=== PATIENT | female | born 1975 | race Caucasian/White ===

== ENCOUNTER 2022-12-14 07:23 | Emergency (ER) | payer MEDICARE, MEDICAID, SELFPAY ==
[2022-12-14 07:29] VITALS: BP 130/88; PULSE 96; RESP 20; TEMP 36.2; O2SAT 96; BMI 31.2
--- NOTE | 2022-12-14 08:17 | ED.PSYCH ---
HPI - Psych General Date Seen: 12/14/22 Chief Complaint: Psychiatric Problem/Disorder Stated Complaint: Mental Health Time Seen by Provider: 12/14/22 07:54 Source: patient Mode of arrival: EMS Limitations: no limitations History of Present Illness HPI Narrative: Is a 47-year-old female who presents here by EMS from [facility] for suicidal ideation, she was recently 3 days ago from [facility] in [place], she was hospitalized there for similar issues, she has a long psychiatric history of hospitalizations greater than 10 she tells me, is looking for a long-term solution for her issues. She has a history of previous substance abuse has been cleaned for 8 years, history of multiple personality disorder, anxiety, depression, and multiple other cluster B traits. She has a plan to stab herself in the head with scissors. Or take an overdose of her medication. Lives by herself, on disability. Tells me that she will go to [facility] because there was a doctor there that told her she should not be rude. She said it is required by healthcare professionals to accept what patient's half to say. I would expect her not to be route to my staff or myself, she promptly told me that she did not want me to be her doctor. I explained to her that I am not siding with anyone I am just sane that we do not accept the fact that patients are rude to healthcare professionals. She said then she would not talk to me anymore, but would allow blood test, and talked to the mental health professional. Related Data Home Medications Medication Instructions Recorded Confirmed atorvastatin 20 mg tablet 20 mg PO .PM, Once Daily 12/14/22 12/14/22 bupropion HCl 150 mg 24 hr tablet, 150 mg PO .AM, Once Daily 12/14/22 12/14/22 extended release cholecalciferol (vitamin D3) 25 50 mcg PO DAILY 12/14/22 12/14/22 mcg (1,000 unit) capsule (Vitamin D3) cholecalciferol (vitamin D3) 50 50 mcg PO .AM, Once Daily 12/14/22 12/14/22 mcg (2,000 unit) capsule glipizide 5 mg tablet 5 mg PO .AM, Once Daily 12/14/22 12/14/22 omeprazole 20 mg capsule,delayed 20 mg PO .AM, Once Daily 12/14/22 12/14/22 release prazosin 1 mg capsule 1 mg PO .AM & PM, Daily 12/14/22 12/14/22 venlafaxine 37.5 mg 37.5 mg PO .AM, Once Daily 12/14/22 12/14/22 capsule,extended release 24 hr (Effexor XR) Allergies Allergy/AdvReac Type Severity Reaction Status Date / Time Iodinated Contrast Media Allergy Verified 12/14/22 07:39 Sulfa (Sulfonamide Allergy Verified 12/14/22 07:39 Antibiotics) bioxin Allergy Uncoded 12/14/22 07:38 Review of Systems Status of ROS: Reports: unobtainable due to mental status Narrative: Patient will not give me any information. PFSH ON LICENSE OF [facility] Social History Smoking Status: Former smoker Do you use any of these nicotine containing products: None Second hand tobacco smoke exposure: No How often do you have a drink containing alcohol: never AUDIT-C Alcohol total score: 0 Non-prescribed substance use: former substance user and opiods/painkillers Non-prescribed substance use details: former opiods and benzos Exam Narrative: Exam Narrative: On examination in room 3 with nurse Nalini present is able to stand and walk around the room normally, mouth opening normal, cranial nerves 3-12 are normal, she has normal her ocular muscles that move normally, TMs are normal, neck is supple, there is no evidence of meningismus, chest is clear bilaterally with no wheezing crackles noted, heart sounds are normal her abdomen is soft and obese, she moves all extremities independently and well, no evidence of any significant cutting behavior, scarring, track lines on the arms or legs. Neurologically she moves her upper lower extremities normally with normal power, she has no evidence of any tremors. Const: Vital Signs, click to edit/add: Vital Signs - 24 hr 12/14/22 07:29 Temperature 97.2 F L Pulse Rate [Pulse Oximeter] 96 Respiratory Rate 20 Blood Pressure [Ri ght Upper Arm] 130/88 Pulse Oximetry 96 Oxygen Delivery Me thod Room Air Documenting provider has reviewed patient's vital signs: yes Common normals: no apparent distress and oriented x3 Neuro: Common normals: oriented x3 Course Reevaluation(s) Reevaluation #1: Patient call me back in the room, she want to apologize for our interaction, accepted, she says she does not agree with me that as the patient can not be ruled with healthcare providers, but I accepted her apology. We will go forward with her deck assessment, she was asking for Zyprexa along with some hydroxyzine both of these are okay to give. She wanted a bigger dose of her Prazosin that she takes for her PTSD, explained to her that this is in the realm Psychiatry, and they handle this. Time: 12:12 Reevaluation #2: Went over with patient the safety plan, it seems like this is the will work well for her. Offered our services in the future if she has any further issues. She was very accepting of this. Apologetic. Time: 14:18 Vital Signs Vital signs: Initial Vital Signs Temperature 97.2 F L 12/14/22 07:29 Temperature Source Temporal Artery Scan 12/14/22 07:29 Pulse Rate 96 12/14/22 07:29 Pulse Rhythm 12/14/22 07:29 Respiratory Rate 20 12/14/22 07:29 Blood Pressure 130/88 12/14/22 07:29 Blood Pressure Mean 102 12/14/22 07:29 Blood Pressure Position Sitting 12/14/22 07:29 Pulse Oximetry 96 12/14/22 07:29 Oxygen Delivery Method 12/14/22 07:29 Vital Signs Temperature 97.2 F L 12/14/22 07:29 Pulse Rate 96 12/14/22 07:29 Respiratory Rate 20 12/14/22 07:29 Blood Pressure 130/88 12/14/22 07:29 Pulse Oximetry 96 12/14/22 07:29 Oxygen Delivery Method 12/14/22 07:29 Temperature 97.2 F L 12/14/22 07:29 Pulse Rate 96 12/14/22 07:29 Respiratory Rate 20 12/14/22 07:29 Blood Pressure 130/88 12/14/22 07:29 Pulse Oximetry 96 12/14/22 07:29 Oxygen Delivery Method 12/14/22 07:29 MDM - Psych MDM Narrative Medical decision making narrative: Differential diagnosis includes but is not limited life-threatening diagnosis is of severe depression with suicidal plan, chemical intoxication with suicidal ideation and risk of self-harm, schizoaffective disorder with risk of self-harm, bipolar disorder with severe depressive phase and risk of self-harm, personality disorder with risk of self-harm, depression due to hyperthyroidism, metabolic derangement, or [employer] abnormality Lab Data Labs: Lab Results 12/14/22 12/14/22 12/14/22 Range/Units 08:20 08:23 08:32 WBC 6.39 (4.50-11.00) K/uL RBC 4.59 (4.00-5.20) m/uL Hgb 12.9 (12.0-16.0) gm/dL Hct 38.5 (33.0-51.0) % MCV 84 (80-100) fL MCH 28 (26-34) pg MCHC 34 (32-36) gm/dL RDW Coeff of Haider 13.8 (11.5-15.5) % Plt Count 304 (140-440) K/uL Neut % (Auto) 52.9 (42.0-72.0) % Lymph % (Auto) 30.2 (20-44) % [place] % (Auto) 11.1 H (0.0-11.0) % Eos % (Auto) 5.0 (0.0-7.0) % Baso % (Auto) 0.8 (0.0-3.0) % Neut # (Auto) 3.38 (1.7-7.0) K/uL Lymph # (Auto) 1.93 (0.90-2.90) K/uL [place] # (Auto) 0.70 (0.00-0.90) K/UL Eos # (Auto) 0.32 (0.00-0.50) K/uL Baso # (Auto) 0.05 (0.00-0.30) K/uL Sodium (135-149) mmol/L Potassium (3.6-5.1) mmol/L Chloride (96-114) mmol/L Carbon Dioxide (20-32) mmol/L BUN (5-24) mg/dL Creatinine (0.5-1.5) mg/dL Estimated Creat Clear Estimated GFR ml/min Glucose (60-115) mg/dL Calcium (8.4-10.6) mg/dL Total Bilirubin (0.1-1.5) mg/dL Direct Bilirubin (0.0-0.5) mg/dL AST (12-35) U/L ALT (4-35) U/L Alkaline Phosphatase (40-150) U/L Total Protein (6.0-8.3) g/dL Albumin (3.3-5.0) g/dL TSH 0.452 (0.270-4.20) uIU/mL HCG, Qual (Negative) Salicylates (1.0-10) mg/dL Urine Opiates Screen (Negative) Ur Oxycodone Screen (Negative) Urine Methadone Screen (Negative) Ur Propoxyphene Screen (Negative) Acetaminophen (10.0-30.0) ug/mL Ur Barbiturates Screen (Negative) U Tricyclic Antidepress (Negative) Ur Phencyclidine Scrn (Negative) Ur Amphetamines Screen (Negative) U Methamphetamines Scrn (Negative) U Benzodiazepines Scrn (Negative) Urine Cocaine Screen (Negative) U Marijuana (THC) Screen (Negative) Ur Drug Screen Comment Ethyl Alcohol (0.01-0.03) % SARS-CoV-2 (PCR) Negative SARS-CoV-2 (Negative) Influenza Type A (PCR) Negative PCR FLU A (Negative) Influenza Type B (PCR) Negative PCR FLU B (Negative) RSV (PCR) Negative PCR RSV (Negative) 12/14/22 12/14/22 12/14/22 Range/Units 08:32 08:41 08:41 WBC (4.50-11.00) K/uL RBC (4.00-5.20) m/uL Hgb (12.0-16.0) gm/dL Hct (33.0-51.0) % MCV (80-100) fL MCH (26-34) pg MCHC (32-36) gm/dL RDW Coeff of Haider (11.5-15.5) % Plt Count (140-440) K/uL Neut % (Auto) (42.0-72.0) % Lymph % (Auto) (20-44) % [place] % (Auto) (0.0-11.0) % Eos % (Auto) (0.0-7.0) % Baso % (Auto) (0.0-3.0) % Neut # (Auto) (1.7-7.0) K/uL Lymph # (Auto) (0.90-2.90) K/uL [place] # (Auto) (0.00-0.90) K/UL Eos # (Auto) (0.00-0.50) K/uL Baso # (Auto) (0.00-0.30) K/uL Sodium 139 (135-149) mmol/L Potassium 4.6 (3.6-5.1) mmol/L Chloride 107 (96-114) mmol/L Carbon Dioxide 22 (20-32) mmol/L BUN 12 (5-24) mg/dL Creatinine 0.8 (0.5-1.5) mg/dL Estimated Creat Clear 82.72 Estimated GFR 90 ml/min Glucose 208 H (60-115) mg/dL Calcium 9.4 (8.4-10.6) mg/dL Total Bilirubin 0.5 (0.1-1.5) mg/dL Direct Bilirubin 0.2 (0.0-0.5) mg/dL AST 51 H (12-35) U/L ALT 49 H (4-35) U/L Alkaline Phosphatase 99 (40-150) U/L Total Protein 8.3 (6.0-8.3) g/dL Albumin 4.6 (3.3-5.0) g/dL TSH (0.270-4.20) uIU/mL HCG, Qual Negative (Negative) Salicylates 2.7 (1.0-10) mg/dL Urine Opiates Screen Negative (Negative) Ur Oxycodone Screen Negative (Negative) Urine Methadone Screen Negative (Negative) Ur Propoxyphene Screen Negative (Negative) Acetaminophen < 10.0 L (10.0-30.0) ug/mL Ur Barbiturates Screen Negative (Negative) U Tricyclic Antidepress Negative (Negative) Ur Phencyclidine Scrn Negative (Negative) Ur Amphetamines Screen Negative (Negative) U Methamphetamines Scrn Negative (Negative) U Benzodiazepines Scrn Negative (Negative) Urine Cocaine Screen Negative (Negative) U Marijuana (THC) Screen Negative (Negative) Ur Drug Screen Comment See Note Ethyl Alcohol < 0.01 L (0.01-0.03) % SARS-CoV-2 (PCR) (Negative) Influenza Type A (PCR) (Negative) Influenza Type B (PCR) (Negative) RSV (PCR) (Negative) Discharge Plan Discharge Clinical Impression: Suicidal ideation, Depression, Acute anxiety Patient Disposition: Home, Self-Care Condition: Stable Instructions: Depression (DC), Cognitive Behavioral Therapy (ED), Help Prevent Suicide (ED), Anxiety (ED), Suicide Prevention (ED) Additional Instructions: Home, rest, follow-up for group therapy as per outlined by the mental health professional, continue same medications, return here if increasing symptoms, or inability to make yourself safe. Prescriptions: No Action venlafaxine [Effexor XR] 37.5 mg capsule,extended release 24hr 37.5 mg PO .AM, Once Daily omeprazole 20 mg capsule,delayed release(DR/EC) 20 mg PO .AM, Once Daily atorvastatin 20 mg tablet 20 mg PO .PM, Once Daily glipizide 5 mg tablet 5 mg PO .AM, Once Daily cholecalciferol (vitamin D3) [Vitamin D3] 25 mcg (1,000 unit) capsule 50 mcg PO DAILY bupropion HCl 150 mg tablet extended release 24 hr 150 mg PO .AM, Once Daily Label Comments: TAKE 1 TABLET BY MOUTH EVERY DAY cholecalciferol (vitamin D3) 50 mcg (2,000 unit) capsule 50 mcg PO .AM, Once Daily Label Comments: TAKE 1 CAPSULE BY MOUTH ONCE DAILY prazosin 1 mg capsule 1 mg PO .AM & PM, Daily Label Comments: TAKE ONE CAPSULE BY MOUTH TWICE DAILY FOR PTSD Follow Up/Referrals: Provider,Not a Local [Primary Care Provider] - Stand Alone Forms: [employer] Info Instructions
[2022-12-14 08:40] LABS: Basophils Absolute Auto 0.05 K/uL (0.00-0.30); Basophils Percent Auto 0.8 % (0.0-3.0); Eosinophils Absolute Auto 0.32 K/uL (0.00-0.50); Hematocrit 38.5 % (33.0-51.0); Hemoglobin* 12.9 gm/dL (12.0-16.0); Lymphocytes Absolute Auto 1.93 K/uL (0.90-2.90); Lymphocytes Percent Auto 30.2 % (20-44); Mean Corpuscular HGB Conc 34 gm/dL (32-36); Mean Corpuscular Hemoglobin 28 pg (26-34); Mean Corpuscular Volume 84 fL (80-100); Monocytes Percent Auto 11.1 % (0.0-11.0); Neutrophils Absolute Auto 3.38 K/uL (1.7-7.0); Neutrophils Percent Auto 52.9 % (42.0-72.0); Platelet Count* 304 K/uL (140-440); RDW Coefficient of Variation % 13.8 % (11.5-15.5); Red Blood Count 4.59 m/uL (4.00-5.20); White Blood Count* 6.39 K/uL (4.50-11.00)
[2022-12-14 08:50] LABS: Slide Review Reflex No
[2022-12-14 08:53] LABS: HCG Qualitative* Negative (Negative)
[2022-12-14 08:57] LABS: Amphetamine Screen Urine Negative (Negative); Barbiturate Screen Urine Negative (Negative); Benzodiazepines Screen Urine Negative (Negative); Cannabinoid Screen Urine Negative (Negative); Cocaine Screen Urine Negative (Negative); Methadone Screen Urine Negative (Negative); Methamphetamines Screen Urine Negative (Negative); Opiate Screen Urine Negative (Negative); Oxycodone Screen Urine Negative (Negative); Phencyclidine Screen Urine Negative (Negative); Tricyclic Antidepressant Urine Negative (Negative)
[2022-12-14 09:02] LABS: PCR FLU A Negative PCR FLU A (Negative); PCR FLU B Negative PCR FLU B (Negative); PCR RSV Negative PCR RSV (Negative)
[2022-12-14 09:08] LABS: Albumin* 4.6 g/dL (3.3-5.0); Chloride* 107 mmol/L (96-114); Potassium* 4.6 mmol/L (3.6-5.1); Sodium* 139 mmol/L (135-149)
[2022-12-14 09:09] LABS: SARS PCR* Negative SARS-CoV-2 (Negative)
[2022-12-14 09:10] LABS: Carbon Dioxide* 22 mmol/L (20-32); Creatinine* 0.8 mg/dL (0.5-1.5); Est. Creatinine Clearance* 82.72; Estimated Glomerular Filt Rate 90 ml/min
[2022-12-14 09:11] LABS: Alanine Aminotransferase* 49 U/L (4-35); Alkaline Phosphatase* 99 U/L (40-150); Aspartate Amino Transferase* 51 U/L (12-35); Bilirubin Direct* 0.2 mg/dL (0.0-0.5); Bilirubin Total* 0.5 mg/dL (0.1-1.5); Blood Urea Nitrogen* 12 mg/dL (5-24); Calcium* 9.4 mg/dL (8.4-10.6); Glucose* 208 mg/dL (60-115); Salicylate* 2.7 mg/dL (1.0-10); Total Protein* 8.3 g/dL (6.0-8.3)
[2022-12-14 09:18] LABS: Acetaminophen* < 10.0 ug/mL (10.0-30.0); Ethanol* < 0.01 % (0.01-0.03)
[2022-12-14 09:55] LABS: Thyroid Stimulating Hormone* 0.452 uIU/mL (0.270-4.20)
[2022-12-14] MEDS: OLANZapine 5 MG TAB.RAPDIS PO (11:17)
--- NOTE | 2022-12-14 14:30 | ED.NURSE ---
Safety plan reviewed and signed by Pt. Handouts and d/c paperwork provided to Pt. Pt waiting for ride in lobby.
[2022-12-14 14:33] VITALS: BP 121/77; PULSE 81; RESP 14; TEMP 36.2
== END 2022-12-14 14:35 | disposition home or self-care (01) ==
PROVIDERS: Emergency Provider Family Medicine
DX: R45.851 Suicidal ideations (principal); F32.A Depression, unspecified; F41.8 Other specified anxiety disorders
CPT/HCPCS: 36415; 80048; 80076; 80143; 80179; 80306; 82077; 84443; 84703; 85025; 87502; 87634; 87635; 99284; 99285; A9270